=== PATIENT | male | born 1955 ===

== ENCOUNTER 2019-10-13 20:08 | Emergency (ER) | payer SELFPAY ==
[~2019-10-13] VITALS: Ht 170.2 cm; Wt 72.6 kg
[2019-10-13 20:08] VITALS: BP 127/75
--- NOTE | 2019-10-13 21:08 | Emergency Room Report ---
History of Present Illness General Chief Complaint: Alcohol Intoxication Source: Patient, EMS (Pito Roach MD) Present Illness HPI 64-year-old male presents ED for evaluation. Brought in by EMS for ETOH intoxication. Found sitting in front of a liquor store. Midst alcohol use. Denies any drug use. States he feels fine. States he is hungry. Denies any pain. Denies any nausea or vomiting. No other aggravating relieving factors. Denies any other associated symptoms (Pito Roach MD) Allergies: Coded Allergies: UNABLE TO ASSESS (Unverified , 10/13/19) Patient History Past Surgical History: none Pertinent Family History: none Social History: Reports: alcohol use; Denies: smoking, drug use Immunizations: UTD Reviewed Nursing Documentation: PMH: Agreed; PSxH: Agreed (Pito Roach MD) Nursing Documentation-PMH Past Medical History Deferred: Pt Cognitively Impaired Past Medical History: No Stated History (Pito Roach MD) Review of Systems All Other Systems: negative except mentioned in HPI (Pito Roach MD) Physical Exam Vital Signs Date Time Temp Pulse Resp B/P (MAP) Pulse Ox O2 Delivery O2 Flow Rate FiO2 10/13/19 19:57 98.2 77 18 127/75 (92) 98 Room Air Sp02 EP Interpretation: reviewed, normal General Appearance: no apparent distress, alert, GCS 15, non-toxic, other - intoxicated Head: normocephalic, atraumatic Eyes: bilateral eye normal inspection, bilateral eye PERRL ENT: hearing grossly normal, normal pharynx, no angioedema, normal voice Neck: full range of motion, supple/symm/no masses Respiratory: chest non-tender, lungs clear, normal breath sounds, speaking full sentences Cardiovascular #1: regular rate, rhythm, no edema Cardiovascular #2: 2+ carotid (R), 2+ carotid (L), 2+ radial (R), 2+ radial (L) , 2+ dorsalis pedis (R), 2+ dorsalis pedis (L) Gastrointestinal: normal bowel sounds, non tender, soft, non-distended, no guarding, no rebound Rectal: deferred Genitourinary: normal inspection, no CVA tenderness Musculoskeletal: back normal, normal range of motion, gait/station normal, non- tender Neurologic: motor strength/tone normal, sensory intact, responsive, speech normal, other - intoxicated Psychiatric: mood/affect normal, no suicidal/homicidal ideation Reflexes: 3+ bicep (R), 3+ bicep (L), 3+ tricep (R), 3+ tricep (L), 3+ knee (R) , 3+ knee (L) Skin: no rash Lymphatic: no adenopathy (Pito Roach MD) Medical Decision Making Diagnostic Impression: Primary Impression: Acute alcoholic intoxication Qualified Codes: F10.920 - Alcohol use, unspecified with intoxication, uncomplicated Last Vital Signs Date Time Temp Pulse Resp B/P (MAP) Pulse Ox O2 Delivery O2 Flow Rate FiO2 10/13/19 19:57 98.2 77 18 127/75 (92) 98 Room Air Status: improved (Pito Roach MD) Reevaluation Time: 04:47 Reevaluation Impression Assumed care of patient from Dr. Roach approximately 10 PM. Briefly, this is a 64-year-old male who presented for alcohol intoxication. He was allowed to metabolize in the emergency department for approximately 8-1/2 hours. He is now clinically sober, ambulating with a steady gait, was given food and something to drink while in the emergency department. Counseled on dangers of alcohol abuse and drinking to excess. Provided resources for drug and alcohol abuse programs. He is stable for outpatient follow-up. (Carl Giron MD) Disposition: HOME, SELF-CARE Condition: Improved Pito Roach MD Oct 13, 2019 21:08 Carl Giron MD Oct 14, 2019 04:49
[2019-10-13 23:15] VITALS: BP 130/78
[2019-10-14 02:32] VITALS: BP 121/74
[2019-10-14 04:45] VITALS: BP 132/79
== END 2019-10-14 04:45 | disposition home or self-care (01) ==
LOC: EDBD 20:08 → EMR 21:15
DX: F10.129 Alcohol abuse with intoxication, unspecified (principal)
CPT/HCPCS: 99282